=== PATIENT | male | born 1960 | race Caucasian/White ===

== ENCOUNTER → 2016-11-15 | Outpatient (CLI) | payer BC ==
[~2016-11-15] MED LIST: FAMO20TA11 PO; LPRUNK PO
[2016-11-15 09:48] LABS: BASO % 0.5 %; BASO ABS # 0.02 K/uL (0-0.2); COMPLETE YES; EOS % 4.8 %; LYMPH % 18.6 %; LYMPH ABS # 0.77 K/uL (1.2-3.4); MEAN CELL VOLUME 89.7 fL (80-100); MEAN CORPUSCULAR HEMOGLOBIN 30.6 pg (25-34); MEAN CORPUSCULAR HGB CONC 34.1 g/dl (32-36); MEAN PLATELET VOLUME 9.5 fL (7.4-10.4); MONO % 7.5 %; NEUT % 68.6 %; PLATELET COUNT 292 K/uL (130-400); RED BLOOD COUNT 5.13 M/uL (4.7-6.1); WHITE BLOOD COUNT 4.14 K/uL (4.8-10.8)
[2016-11-15 10:42] LABS: ALB/GLOB RATIO 1.2 (0.9-2); ALKALINE PHOSPHATASE 78 U/L (45-117); ALT/SGPT 26 U/L (12-78); AST/SGOT 18 U/L (15-37); BLOOD UREA NITROGEN 17 mg/dl (7-18); BUN/CREATININE RATIO 14.2 (10-20); CALCIUM 9.1 mg/dl (8.5-10.1); CARBON DIOXIDE 28 mmol/L (21-32); CHLORIDE 106 mmol/L (98-107); CHOLESTEROL 188 mg/dl (0-200); CHOLESTEROL/HDL RATIO 3.3; FERRITIN 57.2 ng/ml (8.0-388.0); GLUCOSE 93 mg/dl (70-99); HDL CHOLESTEROL 57 mg/dl; LDL CHOLESTEROL CALCULATED 118 mg/dl; MAGNESIUM 2.1 mg/dl (1.8-2.4); POTASSIUM 4.5 mmol/L (3.5-5.1); SODIUM 141 mmol/L (136-145); TRIGLYCERIDES 65 mg/dl (0-150); VERY LOW DENSITY LIPOPROT CALC 13 mg/dl
[2016-11-15 13:08] LABS: LYME DISEASE AB IGG NEG (NEG)
[2016-11-15 13:24] LABS: LYME DISEASE AB IGM EQUIVOCAL (NEG)
[2016-11-20 08:14] LABS: 18KDIGG BAND REACTIVE (NONREACTIVE); 23KDIGG BAND NONREACTIVE (NONREACTIVE); 23KDIGM BAND NONREACTIVE (NONREACTIVE); 28KDIGG BAND NONREACTIVE (NONREACTIVE); 30KDIGG BAND NONREACTIVE (NONREACTIVE); 39KDIGG BAND NONREACTIVE (NONREACTIVE); 39KDIGM BAND NONREACTIVE (NONREACTIVE); 41KDIGG BAND REACTIVE (NONREACTIVE); 41KDIGM BAND NONREACTIVE (NONREACTIVE); 45KDIGG BAND NONREACTIVE (NONREACTIVE); 58KDIGG BAND NONREACTIVE (NONREACTIVE); 66KDIGG BAND REACTIVE (NONREACTIVE); 93KDIGG BAND NONREACTIVE (NONREACTIVE)
--- NOTE | 2016-11-21 11:46 | CODING QUERY MEDICAL NECESSITY ---
SUPPORTING DIAGNOSIS NEEDED A supporting diagnosis is required for the test/procedure performed on this patient in order for us to be reimbursed by the patient's insurance. Please provide a supporting diagnosis for the following test/procedure listed below next to the test name along with your signature. *If there is no additional diagnosis for this patient that would support the following test/procedure please document that below next to the test/procedure. Test(s)/Procedure(s) that require a supporting diagnosis: DOS 11/15 * Vitamin D DIAGNOSIS: * Lipids DIAGNOSIS: Provider Signature: Date: Thank you [facility] Information [facility] Once completed, please kindly fax back to [phone] For questions please call [phone]
== END | disposition home or self-care (01) ==
LOC: C.LAB1850 07:44
PROVIDERS: ATTEND Nurse Practitioner Family
DX: R20.8 Other disturbances of skin sensation (principal); L65.9 Nonscarring hair loss, unspecified; Z13.220 Encounter for screening for lipoid disorders; Z13.1 Encounter for screening for diabetes mellitus

== ENCOUNTER → 2017-04-07 | Outpatient (CLI) | payer BC ==
--- NOTE | 2017-04-28 12:17 | CODING QUERY MEDICAL NECESSITY ---
CQSUPPORTING DIAGNOSIS NEEDED A supporting diagnosis is required for the test/procedure performed on this patient in order for us to be reimbursed by the patient's insurance. Please provide a supporting diagnosis for the following test/procedure listed below next to the test name along with your signature. *If there is no additional diagnosis for this patient that would support the following test/procedure please document that below next to the test/procedure. Test(s)/Procedure(s) that require a supporting diagnosis: DOS 04/07/17 VITAMIN D TEST Provider Signature: Date: Thank you Leyla Ju[facility] Health Information Management Once completed, please kindly fax back to [phone] For questions please call [phone]
== END | disposition home or self-care (01) ==
LOC: C.LABBC 09:20
PROVIDERS: ATTEND Nurse Practitioner Family
DX: R76.8 Other specified abnormal immunological findings in serum (principal)

== ENCOUNTER → 2017-07-30 | Outpatient (CLI) | payer BC ==
[~2017-07-30] MED LIST changes: +CHOL1TAB42 PO; +MISC1CAP60 PO
== END | disposition home or self-care (01) ==
LOC: C.LABBC 08:06
PROVIDERS: ATTEND Nurse Practitioner Family
DX: E55.9 Vitamin D deficiency, unspecified (principal); R35.0 Frequency of micturition

== ENCOUNTER 2017-09-30 19:08 | Emergency (ER) | payer BC ==
[~2017-09-30] VITALS: Ht 191.8 cm; Wt 88.0 kg
[~2017-09-30 19:08] MED LIST changes: -CHOL1TAB42 PO; -MISC1CAP60 PO
[2017-09-30 19:13] VITALS: TEMP 36.6; Ht 191.8 cm; Wt 88.0 kg
--- NOTE | 2017-09-30 19:37 | EMERGENCY ROOM VISIT NOTE ---
History First contact with patient: 19:16 Chief Complaint: ARM PAIN Stated Complaint: PAIN IN LEFT ARM UP INTO SHOULDER AND NECK History of Present Illness The patient is a 57 year old male who presents to the Emergency Room with complaints of medial left arm pain which has been intermittent since 520 this evening. He states he first noticed the pain at work while on the phone. He states he is not performing any activity, and was not overly excited or anxious while on the phone. He states it does not feel like a muscle, and describes it as a dull/diffuse pain. He rates the pain 3/10. He states he noticed it worsening while driving home, and radiating toward the left wrist. He describes an achy sensation in the wrist. He states while on his way here, he noticed some radiation of the pain into his left shoulder and neck. He is now beginning to experience a left-sided headache. The patient states he may have had some slight lateral chest pain with the initiation of the arm pain, but is uncertain. He states the pain is not exertional, and has not noticed any exacerbation or alleviation with activity. He denies any history of similar symptoms or injury to the left upper extremity. He denies any dyspnea or palpitations. He denies any recent illness, abdominal pain, wheezing, cough, congestion, fever, chills, numbness, or tingling. He states he is not experiencing significant pain, but describes it as mild and dull at this time. It is tender on deep palpation of the proximal humerus. He does report a history of hyperlipidemia diagnosed approximately 15 years ago, but states he has not been told on routine lab work that he has elevated cholesterol at this time. His father does have history of NH which occurred at approximately age 79. Prior to this, when the father was younger, he did have a stent and pacemaker placed. The patient does have a history of arrhythmias, however this has been under good control for many years. He did not take any medication for the pain. Review of Systems A complete 10 point review of systems was reviewed with the patient with pertinent positives and negatives as per history of present illness. All else were negative. Past Medical/Surgical History Arrhythmia Family History NH at age 79 in the patient's father. Social History Smoking Status: Never Smoker Smokeless Tobacco Use: No Alcohol Use: none Drug Use: none Marital Status: Housing Status: lives with family Occupation Status: employed Current/Historical Medications Scheduled Cholecalciferol (Vitamin D), 5,000 UNITS PO DAILY [facility] Natural Products (Saw [place]), 1 CAP PO DAILY Physical Exam Vital Signs Date Time Temp Pulse Resp B/P (MAP) Pulse Ox O2 Delivery O2 Flow Rate FiO2 09/30/17 21:23 51 18 98 09/30/17 21:08 54 16 97 09/30/17 21:00 124/83 09/30/17 20:53 51 18 97 09/30/17 20:38 51 17 98 09/30/17 20:33 51 14 97 Room Air 09/30/17 20:30 127/80 09/30/17 20:18 56 13 97 09/30/17 20:09 55 09/30/17 20:03 57 22 98 09/30/17 20:00 138/84 09/30/17 19:48 62 19 100 09/30/17 19:43 59 18 153/88 95 09/30/17 19:23 57 13 100 Room Air 09/30/17 19:13 36.6 66 16 171/85 99 Physical Exam VITALS: Vitals are noted on the nurse's note and reviewed by myself. Vital signs stable. GENERAL: This is a 57-year-old white male, in no acute distress, nondiaphoretic , well-developed well-nourished. SKIN: The skin was without rashes, erythema, edema, or bruising. There is no tenting of the skin. Capillary reflex less than 2 seconds. HEAD: Normocephalic atraumatic. EARS: External auditory canals clear, tympanic membranes pearly recio without erythema or effusion bilaterally. EYES: Pupils equal round and reactive to light and accommodation. Conjunctivae without injection, sclerae without icterus. Extraocular movements intact. NOSE: Patent, turbinates without inflammation or discharge. No sinus tenderness. MOUTH: Mucous membranes moist. Tonsils are not enlarged. Pharynx without erythema or exudate. Uvula midline. Airway patent. Tongue does not deviate. NECK: Supple without nuchal rigidity. No lymphadenopathy. No thyromegaly. Cervical spine is nontender. No JVD. HEART: Regular rate and rhythm without murmurs gallops or rubs. LUNGS: Clear to auscultation bilaterally without wheezes, rales or rhonchi. No dullness to percussion. No retractions or accessory muscle use. ABDOMEN: Positive bowel sounds x 4. Normal tympanic percussion. Soft, nontender, without masses or organomegaly. Ward sign negative. No guarding or rebound tenderness. MUSCULOSKELETAL: No muscle atrophy, erythema, or edema noted. Full range of motion without joint tenderness in all extremities. Tenderness of the proximal left humerus on deep palpation between the biceps muscles. No chest wall tenderness. Normal gait. Strength 5/5 throughout. NEURO: Patient was alert and oriented to person place and time. Normal sensation to light and sharp touch. Deep tendon reflexes 2+ throughout. No focal neurological deficits. Medical Decision & Procedures ER Provider Diagnostic Interpretation: CHEST ONE VIEW PORTABLE CLINICAL HISTORY: 57 years-old Male presenting with chest pain. TECHNIQUE: Portable upright AP view of the chest was obtained. COMPARISON: 05/09/2011. FINDINGS: Atherosclerosis of the aortic arch. Cardiac silhouette normal in size. Lungs mildly hyperinflated. No focal opacity. No large effusion or pneumothorax. Osseous structures normal. IMPRESSION: 1. No acute cardiopulmonary disease. Electronically signed by: Antoine El M.D. 09/30/2017 7:51 PM Dictated Date/Time: 09/30/2017 7:50 PM L HUMERUS MIN 2 VIEWS ROUTINE CLINICAL HISTORY: 57 years-old Male presenting with left upper arm pain, proximal shaft humerus. TECHNIQUE: Frontal and lateral views of the left humerus were obtained. COMPARISON: None. FINDINGS: No acute fracture or malalignment. No advanced degenerative change. No radiographic soft tissue abnormality. IMPRESSION: No acute osseous injury. Electronically signed by: Antoine El M.D. 09/30/2017 7:51 PM Dictated Date/Time: 09/30/2017 7:51 PM Laboratory Results 09/30/17 19:35 Red Blood Count 5.04, Mean Corpuscular Volume 88.3, Mean Corpuscular Hemoglobin 31.2, Mean Corpuscular Hemoglobin Concent 35.3, Mean Platelet Volume 9.0, Neutrophils (%) (Auto) 48.5, Lymphocytes (%) (Auto) 32.8, Monocytes (%) (Auto) 9.5, Eosinophils (%) (Auto) 8.6, Basophils (%) (Auto) 0.4, Neutrophils # (Auto) 2.30, Lymphocytes # (Auto) 1.56, Monocytes # (Auto) 0.45, Eosinophils # (Auto) 0.41, Basophils # (Auto) 0.02 09/30/17 19:35 Test 09/30/17 19:35 09/30/17 21:22 White Blood Count 4.75 K/uL (4.8-10.8) Red Blood Count 5.04 M/uL (4.7-6.1) Hemoglobin 15.7 g/dL (14.0-18.0) Hematocrit 44.5 % (42-52) Mean Corpuscular Volume 88.3 fL (80-100) Mean Corpuscular Hemoglobin 31.2 pg (25-34) Mean Corpuscular Hemoglobin Concent 35.3 g/dl (32-36) Platelet Count 266 K/uL (130-400) Mean Platelet Volume 9.0 fL (7.4-10.4) Neutrophils (%) (Auto) 48.5 % Lymphocytes (%) (Auto) 32.8 % Monocytes (%) (Auto) 9.5 % Eosinophils (%) (Auto) 8.6 % Basophils (%) (Auto) 0.4 % Neutrophils # (Auto) 2.30 K/uL (1.4-6.5) Lymphocytes # (Auto) 1.56 K/uL (1.2-3.4) Monocytes # (Auto) 0.45 K/uL (0.11-0.59) Eosinophils # (Auto) 0.41 K/uL (0-0.5) Basophils # (Auto) 0.02 K/uL (0-0.2) RDW Standard Deviation 41.7 fL (36.4-46.3) RDW Coefficient of Variation 13.0 % (11.5-14.5) Immature Granulocyte % (Auto) 0.2 % Immature Granulocyte # (Auto) 0.01 K/uL (0.00-0.02) Prothrombin Time 10.2 SECONDS (9.0-12.0) Prothromb Time International Ratio 1.0 (0.9-1.1) Activated Partial Thromboplast Time 26.8 SECONDS (21.0-31.0) Partial Thromboplastin Ratio 1.0 Anion Gap 4.0 mmol/L (3-11) Est Creatinine Clear Calc Drug Dose 88.7 ml/min Estimated GFR () 85.3 Estimated GFR (Non- 73.6 BUN/Creatinine Ratio 15.8 (10-20) Calcium Level 8.7 mg/dl (8.5-10.1) Total Bilirubin 0.4 mg/dl (0.2-1) Aspartate Amino Transf (AST/SGOT) 22 U/L (15-37) Alanine Aminotransferase (ALT/SGPT) 33 U/L (12-78) Alkaline Phosphatase 83 U/L (45-117) Total Protein 7.6 gm/dl (6.4-8.2) Albumin 3.9 gm/dl (3.4-5.0) Globulin 3.7 gm/dl (2.5-4.0) Albumin/Globulin Ratio 1.1 (0.9-2) Troponin I 0.016 ng/ml (0-0.045) ECG Per My Interpretation Indication: chest pain Rate (beats per minute): 68 Rhythm: normal sinus Findings: no acute ischemic change Comparison ECG Date: 04/2011 Change: previous premature supraventricular complexes no longer present, otherwise, no significant change ED Course The patient was seen and evaluated as above. EKG performed. This was interpreted by myself as above. IV access obtained, labs drawn. X-rays performed. These were reviewed by myself and radiologist as above. Laboratory results were reviewed by myself. I discussed the results of testing with the patient and his at bedside. I discussed the case with Dr. Rivera, who did recommend a 2 hour repeat troponin. 2 hour repeat troponin was performed. The patient was re-assessed. He is completely asymptomatic at this time. Discharge instructions reviewed, the patient was discharged home in good condition. Medical Decision This is a 57-year-old male patient who presents to the emergency department today complaining of left arm pain. He initially describes the pain as "unlike a muscle pain". The patient has never experienced anything like this before. The patient's heart score is 2, and he is low risk for acute coronary syndrome at this time with the symptoms. He states there is one episode of very mild lateral chest pain associated with arm pain, but he denies any pressure or squeezing. The pain was nonexertional and reproducible. There was no dyspnea noted. The patient's laboratory workup was without significant abnormalities. His white blood cell count was slightly low. Initial troponin was negative. Repeat troponin was negative. X-rays performed and reviewed as above without any abnormalities. Cardiac workup while here in the emergency department was negative. I feel that it is unlikely that this is of cardiac etiology. I suspect a muscular etiology of the patient's discomfort. He was encouraged to follow-up outpatient with his primary care provider and was agreeable to this plan. Etiologies such as cardiac ischemia, aortic dissection, pulmonary embolism, pneumonia, pneumothorax, musculoskeletal, infections, gastrointestinal, as well as others were entertained. Medication Reconcilliation Current Medication List: was personally reviewed by me Blood Pressure Screening Patient's blood pressure: Elevated blood pressure Blood pressure disposition: Elevated BP felt to be situational Impression Primary Impression: Arm pain, left Additional Impression: Chest pain Departure Information Dispostion Home / Self-Care Condition GOOD Referrals Agustín Short III, CRNP (PCP) Patient Instructions ED Chest Pain NonCardiac, [facility] Additional Instructions You were seen in the emergency department today for left arm pain. Labs and imaging workup ruled out cardiac etiology of your symptoms. As discussed, I do suspect a musculoskeletal etiology. Ibuprofen(Motrin, Advil) may be used for fever or pain. Use 600mg every six hours as needed. Take with food. Avoid using more than 2400mg in a 24 hour period. Do not use 2400mg per day for more than three consecutive days without physician direction. Prolonged inappropriate use can lead to stomach upset or ulcers. (AND/OR) Acetaminophen(Tylenol) may be used for fever or pain. Use 1000mg every six hours as needed. Avoid using more than 3000mg in a 24 hour period. You may consider ice or a heating pack to help with discomfort. Please follow-up with your primary care provider within 1 week for re- evaluation and ongoing management of your complaint. Return immediately to the ED for worsening chest pain, difficulty breathing, color changes of the extremity, numbness or tingling, or other concerning symptoms. Problem Qualifiers Additional Impression: Chest pain Chest pain type: other chest pain Qualified Codes: R07.89 - Other chest pain
[2017-09-30 19:50] LABS: BASO % 0.4 %; BASO ABS # 0.02 K/uL (0-0.2); EOS % 8.6 %; EOS ABS # 0.41 K/uL (0-0.5); HEMATOCRIT 44.5 % (42-52); HEMOGLOBIN 15.7 g/dL (14.0-18.0); IG# 0.01 K/uL (0.00-0.02); LYMPH % 32.8 %; LYMPH ABS # 1.56 K/uL (1.2-3.4); MEAN CELL VOLUME 88.3 fL (80-100); MEAN CORPUSCULAR HEMOGLOBIN 31.2 pg (25-34); MEAN CORPUSCULAR HGB CONC 35.3 g/dl (32-36); MONO % 9.5 %; MONO ABS # 0.45 K/uL (0.11-0.59); NEUT % 48.5 %; PLATELET COUNT 266 K/uL (130-400); RED CELL DISTRIBUTION WIDTH SD 41.7 fL (36.4-46.3); WHITE BLOOD COUNT 4.75 K/uL (4.8-10.8)
--- NOTE | 2017-09-30 19:52 | DIAGNOSTIC IMAGING REPORT ---
CHEST ONE VIEW PORTABLE CLINICAL HISTORY: 57 years-old Male presenting with chest pain. TECHNIQUE: Portable upright AP view of the chest was obtained. COMPARISON: 05/09/2011. FINDINGS: Atherosclerosis of the aortic arch. Cardiac silhouette normal in size. Lungs mildly hyperinflated. No focal opacity. No large effusion or pneumothorax. Osseous structures normal. IMPRESSION: 1. No acute cardiopulmonary disease. Electronically signed by: Antoine El M.D. 09/30/2017 7:51 PM Dictated Date/Time: 09/30/2017 7:50 PM
--- NOTE | 2017-09-30 19:53 | DIAGNOSTIC IMAGING REPORT ---
L HUMERUS MIN 2 VIEWS ROUTINE CLINICAL HISTORY: 57 years-old Male presenting with left upper arm pain, proximal shaft humerus. TECHNIQUE: Frontal and lateral views of the left humerus were obtained. COMPARISON: None. FINDINGS: No acute fracture or malalignment. No advanced degenerative change. No radiographic soft tissue abnormality. IMPRESSION: No acute osseous injury. Electronically signed by: Antoine El M.D. 09/30/2017 7:51 PM Dictated Date/Time: 09/30/2017 7:51 PM
[2017-09-30] MEDS ORDERED: MISC1CAP60 PO (19:54)
[2017-09-30] MEDS ORDERED: CHOL1TAB42 PO (19:54)
[2017-09-30 20:00] LABS: PTT PATIENT 26.8 SECONDS (21.0-31.0)
[2017-09-30 20:11] LABS: ALBUMIN 3.9 gm/dl (3.4-5.0); ALT/SGPT 33 U/L (12-78); AST/SGOT 22 U/L (15-37); BLOOD UREA NITROGEN 17 mg/dl (7-18); CALCIUM 8.7 mg/dl (8.5-10.1); CARBON DIOXIDE 30 mmol/L (21-32); GLUCOSE 87 mg/dl (70-99); POTASSIUM 3.7 mmol/L (3.5-5.1); SODIUM 139 mmol/L (136-145)
[2017-09-30 20:15] LABS: ALKALINE PHOSPHATASE 83 U/L (45-117); TOTAL PROTEIN 7.6 gm/dl (6.4-8.2)
[2017-09-30 22:13] VITALS: PULSE 56; O2SAT 100
[2017-09-30 22:15] VITALS: BP 138/83
== END 2017-09-30 22:20 | disposition home or self-care (01) ==
LOC: C.EDB 19:09
DX: M79.602 Pain in left arm (principal); R07.89 Other chest pain; R03.0 Elevated blood-pressure reading, without diagnosis of hypertension; Z86.79 Personal history of other diseases of the circulatory system; Z82.49 Family history of ischemic heart disease and other diseases of the circulatory system